=== PATIENT | female | born 1980 | race Caucasian/White ===

== ENCOUNTER 2024-02-24 20:02 | Emergency (ER) | payer MEDICAID, SELFPAY ==
--- NOTE | 2024-02-24 20:04 | XRR_ITS ---
PROCEDURE INFORMATION: Exam: XR Chest Exam date and time: 02/24/2024 8:58 PM Age: 43 years old Clinical indication: Chest wall pain; Additional info: Cp TECHNIQUE: Imaging protocol: Radiologic exam of the chest. Views: 1 view. COMPARISON: No relevant prior studies available. FINDINGS: Lungs: Unremarkable. No consolidation. Pleural spaces: Unremarkable. No pleural effusion. No pneumothorax. Heart/Mediastinum: Unremarkable. No cardiomegaly. Bones/joints: Unremarkable. XR/XR chest 1V portable [id number] IMPRESSION: No acute findings.
--- NOTE | 2024-02-24 20:05 | ECG_ITS ---
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 Measurements Intervals [place] Rate: 76 P: 52 VT: 142 QRS: 51 QRSD: 85 T: 47 QT: 395 QTc: 445 Interpretive Statements SINUS RHYTHM No previous ECG available for comparison Electronically Signed On 02-25-2024 8:36:35 CDT by Alfred Mendes M.D. [id number]
[2024-02-24 20:09] VITALS: BP 146/87; PULSE 75; RESP 18; TEMP 36.6; O2SAT 100
--- NOTE | 2024-02-24 20:28 | ED_ITS ---
HPI - Chest Pain 2 General: Chief Complaint: Chest Pain Stated Complaint: SOB\Chest Pain Time Seen by Provider: 02/24/24 20:24 Source: patient Mode of arrival: ambulatory Limitations: no limitations History of Present Illness: 43-year-old female states for last 2 day s she has been having chest pains along with shortness of breath. States she is also been having some anxiety. She denies any history of coronary artery disease. Patient denies any cough or fevers denies any vomiting or diarrhea. Associated symptoms: Reports dyspnea; Deny abdominal pain, fever(s), nausea or vomiting Review of Systems 2 Const: Denies: fever(s), chills, body aches or change in appetite ENMT: Denies: throat pain or dental pain Card: Reports: chest pain Resp: Reports: dyspnea GI: Denies: abdominal pain, nausea, vomiting or diarrhea Musc: Denies: neck pain or back pain Skin/Breast: Denies: rash Neuro: Denies: headache(s) Psych: Reports: anxiety [facility] ED 2 Female Reproductive History: Date of last menstrual period: 01/26/24 Physical Exam 2 Const: COMMON NORMALS: no acute distress, patient oriented x3 and healthy appearing HENMT: COMMON NORMALS: normocephalic and atraumatic HEAD & SCALP: n ormocephalic and atraumatic Neck/C-Spine: COMMON NORMALS: full ROM and supple Chest: COMMONS NORMALS: normal inspection of the chest Resp: COMMON NORMALS: normal respiratory effort, No retractions, No use of accessory muscles and clear to auscultation bilaterally AUSCULTATION: clear to auscultation bilaterally Cardio: COMMON NORMALS: regular rate, regular rhythm and No murmurs present (Cardio) RATE: regular rate RHYTHM: regular rhythm Extremity: COMMON NORMALS: normal to inspection and full ROM Neuro: COMMON NORMALS: patient oriented x3, moves all extremities and no focal motor deficits Psych: COMMON NORMALS: mental status grossly normal, Normal thought process present and cooperative THOUGHT PROCESS: Normal thought process present Skin: COMMON NORMALS: no rashes or lesions noted and no wounds GENERAL SKIN EXAM: no rashes or lesions noted Course 2 Vital Signs: Vital signs: Vital Signs Temperature 98 F 02/24/24 20:09 Pulse Rate 99 02/24/24 21:11 Respiratory Rate 18 02/24/24 20:09 Blood Pressure 116/73 02/24/24 20:50 Pulse Oximetry 100 02/24/24 21:11 Oxygen Delivery Me thod Room Air 02/24/24 21:11 MDM - Chest Pain Medical Decision Making Patient presents here with chest pain is atypical in nature her troponin here is negative D-dimer is negative as well she was quite anxious states she feels much improved she stable for discharge no signs of pulmonary embolism or acute coronary syndrome she is return if worsening. Medical Records I reviewed the patient's medical records. Lab Data I reviewed the patient's lab results. 02/24/24 20:42 02/24/24 21:09 Radiology Impressions Chest X-Ray 02/24/24 20:04 IMPRESSION: No acute findings. Laboratory Results WBC 7.47 10^3/uL (3.29-11.43) 02/24/24 20:42 RBC 4.23 10^6/uL (3.85-5.65) 02/24/24 20:42 Hgb 13.00 g/dL (11.27-16.99) 02/24/24 20:42 Hct 38.4 % (36-47) 02/24/24 20:42 MCV 90.8 fl (85-98) 02/24/24 20:42 MCH 30.7 pg (27-33) 02/24/24 20:42 MCHC 33.9 g/dL (30-55) 02/24/24 20:42 RDW 13.1 % (12.1-15.1) 02/24/24 20:42 Plt Count 300 10^3/cmm (157-399) 02/24/24 20:42 MPV 8.8 fL (7.4-10.4) 02/24/24 20:42 Neut % (Auto) 61.7 % 02/24/24 20:42 Lymph % (Auto) 27.6 % 02/24/24 20:42 [place] % (Auto) 9.5 % 02/24/24 20:42 Eos % (Auto) 0.8 % 02/24/24 20:42 Baso % (Auto) 0.3 % 02/24/24 20:42 Neut # (Auto) 4.61 10^3/uL (1.8-7.7) 02/24/24 20:42 Lymph # (Auto) 2.1 10^3/uL (0.8-4.8) 02/24/24 20:42 [place] # (Auto) 0.7 10^3/uL (0.2-0.9) 02/24/24 20:42 Eos # (Auto) 0.1 10^3/uL (0.0-0.8) 02/24/24 20:42 Baso # (Auto) 0.0 10^3/uL (0.0-0.1) 02/24/24 20:42 Nucleated RBC % (auto) 0 % 02/24/24 20:42 Nucleated RBCs # 0.0 /100WBC 02/24/24 20:42 D-Dimer 0.35 ug/mLFEU (0-0.59) 02/24/24 20:42 Sodium 137 mmol/L (136-145) 02/24/24 21:09 Potassium 4.2 mmol/L (3.5-5.1) 02/24/24 21:09 Chloride 103 mmol/L (98-107) 02/24/24 21:09 Carbon Dioxide 25 mmol/L (22-29) 02/24/24 21:09 Anion Gap 13.2 (5-19) 02/24/24 21:09 BUN 11 mg/dL (6-20) 02/24/24 21:09 Creatinine 0.8 mg/dL (0.5-0.9) 02/24/24 21:09 GFR Calculation 78.3 mL/min (90-130) L 02/24/24 21:09 Glucose 89 mg/dL (65-115) 02/24/24 21:09 Calculated Osmolality 283 mOsm/kg (285-295) L 02/24/24 21:09 Calcium 9.2 mg/dL (8.5-10.5) 02/24/24 21:09 Total Bilirubin 0.3 mg/dL (0.15-1.2) 02/24/24 21:09 AST 52 U/L (0-32) H 02/24/24 21:09 ALT 67 U/L (0-33) H 02/24/24 21:09 Alkaline Phosphatase 99 U/L (35-105) 02/24/24 21:09 Troponin T Baseline < 6 ng/L (0-10) 02/24/24 20:42 Total Protein 7.1 g/dL (6.6-8.7) 02/24/24 21:09 Albumin 4.1 g/dL (3.5-5.2) 02/24/24 21:09 Globulin 3.0 g/dL (1.3-4.6) 02/24/24 21:09 Lipase 12 U/L (13-60) L 02/24/24 21:09 All radiology interpretation(s) finalized by discharge EKG Data EKG 1: I personally reviewed and interpreted this EKG as follows: EKG interpretation date: 02/24/24 EKG interpretation time: 20:04 Interpretation: nsr hr [address] or t wave abnormalities qrs 85 qtc 425 Discharge Plan Discharge Patient Disposition: Home Clinical Impression: Chest pain Condition: Stable Discharge Orders: Discharge ED (Routine); Ordered 02/24/24 Ordered By: Purnima Mason Discharge Diet: Advance as tolerated Discharge Activity: Resume usual activity Patient Instructions: Chest Pain (ED) Coding Level of Care Code ED Financial Accounting Manager for Emiliano Kaiser
[2024-02-24 20:50] VITALS: BP 116/73; PULSE 69; O2SAT 100
[2024-02-24 20:50] LABS: Basophils % 0.3 %; Eosinophils # 0.1 10^3/uL (0.0-0.8); Eosinophils % 0.8 %; Hematocrit 38.4 % (36-47); Lymphocytes # 2.1 10^3/uL (0.8-4.8); Lymphocytes % 27.6 %; Mean Corpuscular HGB Conc 33.9 g/dL (30-55); Mean Corpuscular Hemoglobin 30.7 pg (27-33); Mean Corpuscular Volume 90.8 fl (85-98); Mean Platelet Volume 8.8 fL (7.4-10.4); Monocytes # 0.7 10^3/uL (0.2-0.9); Monocytes % 9.5 %; Neutrophils # 4.61 10^3/uL (1.8-7.7); Neutrophils % 61.7 %; Nucleated Red Blood Cells % 0 %; Platelet Count 300 10^3/cmm (157-399); Red Blood Count 4.23 10^6/uL (3.85-5.65); Red Cell Distribution Width 13.1 % (12.1-15.1); White Blood Count 7.47 10^3/uL (3.29-11.43)
[2024-02-24 21:06] LABS: D Dimer 0.35 ug/mLFEU (0-0.59)
[2024-02-24 21:11] VITALS: PULSE 99; O2SAT 100
[2024-02-24 21:26] LABS: Troponin(5th) Baseline < 6 ng/L (0-10)
[2024-02-24 21:30] VITALS: BP 128/92; PULSE 79; O2SAT 100
[2024-02-24 21:32] LABS: Alanine Aminotransferase 67 U/L (0-33); Albumin Level 4.1 g/dL (3.5-5.2); Alkaline Phosphatase 99 U/L (35-105); Anion Gap 13.2 (5-19); Aspartate Amino Transferase 52 U/L (0-32); Blood Urea Nitrogen 11 mg/dL (6-20); Calcium 9.2 mg/dL (8.5-10.5); Carbon Dioxide 25 mmol/L (22-29); Chloride 103 mmol/L (98-107); Glomerular Filtration Rate 78.3 mL/min (90-130); Glucose 89 mg/dL (65-115); Lipase 12 U/L (13-60); Osmolality Calculated 283 mOsm/kg (285-295); Potassium 4.2 mmol/L (3.5-5.1); Sodium 137 mmol/L (136-145); Total Bilirubin 0.3 mg/dL (0.15-1.2); Total Protein 7.1 g/dL (6.6-8.7)
[2024-02-24 21:51] VITALS: PULSE 73; O2SAT 95
== END 2024-02-24 21:53 | disposition home or self-care (01) ==
PROVIDERS: Emergency Provider Emergency Medicine
DX: R07.9 Chest pain, unspecified (principal)
CPT/HCPCS: 36415; 71045; 80053; 83690; 84484; 85025; 85378; 93005; 99285